=== PATIENT | male | born 1990 | race Caucasian/White ===

== ENCOUNTER 2016-11-10 21:24 | Emergency (ER) | payer SELFPAY ==
[2016-11-10 21:46] VITALS: BP 134/86; PULSE 75; TEMP 98.3; BMI 27.3
[2016-11-11] MEDS ORDERED: AMOXICILLIN 500 MG CAPSULE (FP) PO ONE (00:08)
[2016-11-11] MEDS ORDERED: KETOROLAC TROMETHAMINE 60 MG/2 ML VIAL IM ONE (00:08)
--- NOTE | 2016-11-11 00:15 | PDOC ---
History of Present Illness - General Chief Complaint: Toothache Stated Complaint: TOOTHACHE Time Seen by Provider: 11/10/16 23:37 History Source: Patient Exam Limitations: No Limitations - History of Present Illness Initial Comments: 11/11/16 00:13 25yo Male patient w/ PmHx: Anxiety presents to ED c/o dental pain which began yesterday, but worsened today. Patient reports subjective fever. Denies any other complaints at this time. Past History - Travel Traveled outside of the country in the last 30 days: No Close contact w/someone who was outside of country & ill: No - Past Medical History Allergies/Adverse Reactions: Allergies Allergy/AdvReac Type Severity Reaction Status Date / Time No Known Allergies Allergy Verified 11/10/16 21:42 Home Medications: Ambulatory Orders No Home Medications 0 dose .ROUTE UTDICT 12/09/12 Sertraline HCl 50 mg PO DAILY 11/10/16 Amoxicillin - [Amoxicillin 500mg Capsule -] 500 mg PO Q6H #28 capsule 11/11/16 Oxycodone HCl/Acetaminophen [Oxycodone-Acetaminophen 5-325] 1 each PO Q6H PRN # 12 tablet MDD 4 tabs 11/11/16 Psychiatric Problems: Yes (Anxiety) - Immunization History Immunization Up to Date: Yes - Psycho/Social/Smoking Cessation Hx Suicidal Ideation: No Smoking Status: No Smoking History: Never smoked Have you smoked in the past 12 months: No Number of Cigarettes Smoked Daily: 0 Information on smoking cessation initiated: No Hx Alcohol Use: No Drug/Substance Use Hx: No Substance Use Type: None Review of Systems - Review of Systems Able to Perform ROS?: Yes Is the patient limited Bulgarian proficient: No Constitutional: Yes: Fever (Subjective). No: Chills HEENTM: Yes: Dental Problems All Other Systems: Reviewed and Negative *Physical Exam - Vital Signs Last Vital Signs Temp Pulse Resp BP Pulse Ox 98.3 F 75 17 134/86 99 11/10/16 21:43 11/10/16 21:43 11/10/16 21:43 11/10/16 21:43 11/10/16 21:43 - Physical Exam General Appearance: Yes: Nourished, Appropriately Dressed. No: Apparent Distress, Mild Distress, Moderate Distress, Severe Distress HEENT: positive: EOMI, SESAR, Normal ENT Inspection, Normal Voice, Symmetrical, TMs Normal, Pharynx Normal, Other (Dental caries to tooth# 14 and 15 with mild gum line swelling. Mild erythema). negative: Pharyngeal Erythema, Tonsillar Exudate, Tonsillar Erythema, Nasal Congestion, Rhinorrhea, TM Bulging, TM Dull, TM Erythema Neck: positive: Trachea midline, Normal Thyroid, Supple. negative: Rigid, Decreased range of motion, Stridor, Lymphadenopathy (R), Lymphadenopathy (L) Respiratory/Chest: positive: Lungs Clear, Normal Breath Sounds. negative: Chest Tender, Respiratory Distress, Accessory Muscle Use, Labored Respiration, Rapid RR Cardiovascular: positive: Regular Rhythm, Regular Rate Musculoskeletal: positive: Normal Inspection. negative: CVA Tenderness, Vertebral Tenderness Extremity: positive: Normal Capillary Refill, Normal Inspection, Normal Range of Motion. negative: Pedal Edema, Swelling, Calf Tenderness, Erythema, Inflammation Integumentary: positive: Normal Color, Dry, Warm. 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, Fully Oriented, Alert, Normal Mood/ Affect, Normal Response, Motor Strength 5/5 *DC/Admit/Observation/Transfer Diagnosis at time of Disposition: Dental caries, Gingivitis, acute - Discharge Dispostion Disposition: HOME Condition at time of disposition: Stable Admit: No - Prescriptions Prescriptions: Amoxicillin - [Amoxicillin 500mg Capsule -] 500 mg PO Q6H #28 capsule Oxycodone HCl/Acetaminophen [Oxycodone-Acetaminophen 5-325] 1 each PO Q6H PRN # 12 tablet MDD 4 tabs PRN Reason: Severe Pain - Patient Instructions Printed Discharge Instructions: DI for Tooth Decay, DI for Dental Pain Additional Instructions: FOLLOW UP WITH YOUR DENTIST DISCUSSED. IF YOU FAIL TO DO SO, YOUR SYMPTOMS MAY RETURN. TAKE MEDICATIONS PRESCRIBED. DO NOT DRIVE, DRINK ALCOHOL OR OPERATE HEAVY MACHINERY WHILE TAKING OXYCODONE. Print Language: ROMANIAN
[2016-11-11] MEDS ORDERED: KETOROLAC TROMETHAMINE 60 MG/2 ML VIAL ONE (00:36)
[2016-11-11] MEDS ORDERED: AMOXICILLIN 500 MG CAPSULE (FP) ONE (00:36)
--- NOTE | 2016-11-11 00:43 | PDOC ---
*Physical Exam - Vital Signs Last Vital Signs Temp Pulse Resp BP Pulse Ox 98.3 F 75 17 134/86 99 11/10/16 21:43 11/10/16 21:43 11/10/16 21:43 11/10/16 21:43 11/10/16 21:43 Medical Decision Making - Medical Decision Making 11/11/16 00:43 agree with care from [facility] [employer] Yefri *DC/Admit/Observation/Transfer Diagnosis at time of Disposition: Dental caries, Gingivitis, acute - Prescriptions Prescriptions: Amoxicillin - [Amoxicillin 500mg Capsule -] 500 mg PO Q6H #28 capsule Oxycodone HCl/Acetaminophen [Oxycodone-Acetaminophen 5-325] 1 each PO Q6H PRN # 12 tablet MDD 4 tabs PRN Reason: Severe Pain - Referrals Referrals: Xavier Cramer MD [Primary Care Provider] - - Patient Instructions Printed Discharge Instructions: DI for Tooth Decay, DI for Dental Pain Additional Instructions: FOLLOW UP WITH YOUR DENTIST DISCUSSED. IF YOU FAIL TO DO SO, YOUR SYMPTOMS MAY RETURN. TAKE MEDICATIONS PRESCRIBED. DO NOT DRIVE, DRINK ALCOHOL OR OPERATE HEAVY MACHINERY WHILE TAKING OXYCODONE. Print Language: JAMAICAN - Post Discharge Activity
== END 2016-11-11 00:49 | disposition home or self-care (01) ==
LOC: JERFT 21:24 → JER 21:24
PROC: 3E0233Z Introduction of Anti-inflammatory into Muscle, Percutaneous Approach (ICD-10-PCS; principal; 2016-11-10)
DX: K02.9 Dental caries, unspecified (principal); K05.10 Chronic gingivitis, plaque induced
CPT/HCPCS: 99281-25

== ENCOUNTER 2018-03-05 15:50 | Emergency (ER) | payer SELFPAY ==
[2018-03-05 15:55] VITALS: BP 122/76; PULSE 56; TEMP 98.6; BMI 28.0
--- NOTE | 2018-03-05 16:56 | PDOC ---
History of Present Illness - General Chief Complaint: Weakness Stated Complaint: FATIGUE Time Seen by Provider: 03/05/18 16:25 History Source: Patient Exam Limitations: No Limitations - History of Present Illness Initial Comments: 03/05/18 16:56 The patient is a 27M with a PMH of anxiety who presents to the ER with complaints of fatigue and eye twitching. The patient states that for the past 2- 3 days he's been more fatigued and feeling anxious. He states that he sleeps 3- 4 hours a night and has recently picked up a second job. He admits to formerly taking sertraline for his anxiety then stopping cold turkey 3 months ago. He started it again 2 days ago because he could not tolerate the anxiety. He denies any fevers, chills, nausea, vomiting, decreased PO intake, and stimulant use. He denies any illicit drug use. Past History - Past Medical History Allergies/Adverse Reactions: Allergies Allergy/AdvReac Type Severity Reaction Status Date / Time No Known Allergies Allergy Verified 03/05/18 15:55 Home Medications: Ambulatory Orders No Home Medications 0 dose .ROUTE UTDICT 12/09/12 Sertraline HCl 50 mg PO DAILY 11/10/16 Amoxicillin - [Amoxicillin 500mg Capsule -] 500 mg PO Q6H #28 capsule 11/11/16 Oxycodone HCl/Acetaminophen [Oxycodone-Acetaminophen 5-325] 1 each PO Q6H PRN # 12 tablet MDD 4 tabs 11/11/16 COPD: No Psychiatric Problems: Yes (Anxiety) - Immunization History Immunization Up to Date: Yes - Suicide/Smoking/Psychosocial Hx Smoking Status: No Smoking History: Never smoked Have you smoked in the past 12 months: No Number of Cigarettes Smoked Daily: 0 Hx Alcohol Use: No Drug/Substance Use Hx: No Substance Use Type: None Review of Systems - Review of Systems Able to Perform ROS?: Yes Comments:: 03/05/18 17:10 GENERAL/CONSTITUTIONAL: Positive for fatigue. No fever or chills. No weakness. HEAD, EYES, EARS, NOSE AND THROAT: Positive for eye twitching. No change in vision. No ear pain or discharge. No sore throat. CARDIOVASCULAR: No chest pain, palpitations, or lightheadedness. RESPIRATORY: No cough, wheezing, shortness of breath, or hemoptysis. GASTROINTESTINAL: No nausea, vomiting, diarrhea, constipation, or abdominal pain. GENITOURINARY: No dysuria, frequency, hematuria, or change in urination. MUSCULOSKELETAL: No joint or muscle swelling or pain. No neck or back pain. SKIN: No rash or lesions. NEUROLOGIC: No headache, numbness, tingling, focal weakness, loss of consciousness, or change in strength/sensation. ENDOCRINE: No increased thirst. No abnormal weight change. HEMATOLOGIC/LYMPHATIC: No anemia, easy bleeding, or history of blood clots. ALLERGIC/IMMUNOLOGIC: No hives or skin allergy. Is the patient limited Estonian proficient: No *Physical Exam - Vital Signs Last Vital Signs Temp Pulse Resp BP Pulse Ox 98.6 F 56 L 18 122/76 99 03/05/18 15:52 03/05/18 15:52 03/05/18 15:52 03/05/18 15:52 03/05/18 15:52 - Physical Exam Comments: 03/05/18 17:11 GENERAL: Well developed, well nourished. Awake and alert. No acute distress. HEENT: Normocephalic, atraumatic. Hearing grossly normal. Moist mucous membranes. PERRLA, EOMI. No conjunctival pallor. Sclera are non-icteric. NECK: Supple. Full ROM. No JVD. CARDIOVASCULAR: Regular rate and rhythm. No murmurs, rubs, or gallops. PULMONARY: No evidence of respiratory distress. Lungs clear to auscultation bilaterally. No wheezing, rales or rhonchi. ABDOMINAL: Soft. Non-tender. Non-distended. No rebound or guarding. GENITOURINARY: No CVA tenderness bilaterally. MUSCULOSKELETAL: Normal range of motion at all joints. No bony deformities or tenderness. EXTREMITIES: No cyanosis. No clubbing. No edema. No calf tenderness or swelling. SKIN: Warm and dry. Normal capillary refill. No rashes. No jaundice. NEUROLOGICAL: Alert, awake, appropriate. Cranial nerves 2-12 intact. Normal speech. Gait is normal without ataxia. PSYCHIATRIC: Cooperative. Good eye contact. Appropriate mood and affect. Medical Decision Making - Medical Decision Making 03/05/18 17:11 The patient is a 27M with a PMH of anxiety who presents with fatigue and eye twitching, likely both related to anxiety as they are nonspecific. The patient states that he has not been sleeping well. When offered days off work, he requests an extra day. He does admit to increased anxiety. Will give him PCP f/ u and strict return precautions. *DC/Admit/Observation/Transfer Diagnosis at time of Disposition: Fatigue Qualifiers: Fatigue type: unspecified Qualified Code(s): R53.83 - Other fatigue - Discharge Dispostion Disposition: HOME Condition at time of disposition: Stable Decision to Admit order: No - Referrals Referrals: Daniel Soto MD [Staff Physician] - - Patient Instructions Printed Discharge Instructions: DI for Anxiety -- Adult Additional Instructions: Please follow up with the primary care physician at the [facility] in 1-3 days. Please return to the ER if you have any signs or symptoms of chest pain, shortness of breath, uncontrollable fever, chills, nausea, vomiting, numbness, tingling, or weakness in any part of your body, changes in vision, or slurred speech. Please take your medications as prescribed. Please return to the ER if symptoms persist, worsen, or new symptoms arise. - Post Discharge Activity
--- NOTE | 2018-03-05 17:03 | PDOC ---
Attending Attestation - Resident Resident Name: Ethan Humphries - ED Attending Attestation I have performed the following: I have examined & evaluated the patient, The case was reviewed & discussed with the resident, I agree w/resident's findings & plan, Exceptions are as noted - HPI HPI: 03/05/18 16:54 27 M with h/o anxiety presents to ED with 1 week of fatigue and bilateral eye burning and twitching. Pt states that he started working 2 jobs last week and gets very inconsistent sleep. 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 He then wakes up at 3am to go back to work. Pt states that he feels very fatigued, and his eyes both feel irritated. He denies any increased redness or drainage from his eyes. Denies blurred vision or double vision. Pt does report twitching of his L eyelid. - Physicial Exam PE: 03/05/18 17:03 "GENERAL: Awake, alert, and fully oriented, in no acute distress. HEAD: No signs of trauma EYES: PERRLA, EOMI, sclera anicteric, conjunctiva clear ENT: Auricles normal inspection, hearing grossly normal, nares patent, oropharynx clear without exudates. Moist mucosa NECK: Nontender, no stepoffs, Normal ROM, supple, no lymphadenopathy, JVD, or masses LUNGS: Breath sounds equal, clear to auscultation bilaterally. No wheezes, and no crackles HEART: Regular rate and rhythm, normal S1 and S2, no murmurs, rubs or gallops ABDOMEN: Soft, nontender, normoactive bowel sounds. No guarding, no rebound. No masses EXTREMITIES: Normal range of motion, no edema. No clubbing or cyanosis. No cords, erythema, or tenderness NEUROLOGICAL: Cranial nerves II through XII intact. 5/5 strength and sensation in all extremities, Normal speech, normal gait, normal cerebellar function SKIN: Warm, Dry, normal turgor, no rashes or lesions noted." - Medical Decision Making 03/05/18 17:03 27 M with fatigue, eye burning, and L eyelid twitching. Likely 2/2 sleep deprivation. Pt with normal exam, no sign of conjuncivitis. Pt well appearing, stable vitals. - Artificial tears - F/u PMD - Work note Pt is well appearing, with normal vitals. Clinically stable for DC at this time. I discussed the physical exam findings, ancillary test results and final diagnoses with the patient. I answered all of the patient's questions. The patient was satisfied with the care received and felt comfortable with the discharge plan and treatment plan. The patient agrees to follow up with the primary care physician within 24-72 hours.
== END 2018-03-05 17:31 | disposition home or self-care (01) ==
LOC: JER 15:50
DX: R53.83 Other fatigue (principal); F41.9 Anxiety disorder, unspecified
CPT/HCPCS: 99282-25

== ENCOUNTER 2018-05-08 18:32 | Emergency (ER) | payer SELFPAY ==
--- NOTE | 2018-05-08 19:08 | PDOC ---
Rapid Medical Evaluation Time Seen by Provider: 05/08/18 19:06 Medical Evaluation: Allergies Allergy/AdvReac Type Severity Reaction Status Date / Time No Known Allergies Allergy Verified 03/05/18 15:55 05/08/18 19:07 Pt c/o: headache and weakness x 1 week, no hx of vertigo, no fever, hx anxiety, + insomnia, eating well Pt on brief exam: vss, pt ordered for: cbc, comp, ua pt to proceed to the ED Discharge Disposition - Diagnosis Headache - Referrals Referrals: Xavier Cramer MD [Primary Care Provider] - - Patient Instructions - Post Discharge Activity
[2018-05-08 19:10] VITALS: BMI 28.3
[2018-05-08 20:03] LABS: BASO % 0.8 % (0-2.0); EOS % 1.8 % (0-4.5); HEMATOCRIT 44.5 % (35.4-49); HEMOGLOBIN 15.6 GM/dL (11.7-16.9); LYMPH % 26.1 % (8-40); MCH 31.2 pg (25.7-33.7); MCHC 35.1 g/dl (32.0-35.9); MEAN PLT VOLUME 9.6 fl (7.5-11.1); MONO % 9.5 % (3.8-10.2); NEUT % 61.8 % (42.8-82.8); PLATELET COUNT 171 K/MM3 (134-434); RDW 13.1 % (11.9-15.9); WHITE BLOOD COUNT 10.4 K/mm3 (4.0-10.0)
--- NOTE | 2018-05-08 20:34 | PDOC ---
History of Present Illness - General Chief Complaint: Lightheaded Stated Complaint: Weakness Time Seen by Provider: 05/08/18 19:06 History Source: Patient - History of Present Illness Initial Comments: 05/08/18 20:50 27-year-old male complaining of overall weakness and fatigues for the last several days. Patient reports that he's been taking sertraline for anxiety. Reports being anxious for the last 2 weeks when patient lost his job. Currently patient restarted working and has some anxiety about the new job. Patient reports that he has been sleeping 3-4 hours daily for the last 2 weeks. Denies suicidal ideation or homicidal ideations. Denies fevers/chills, nausea, vomiting , diarrhea, abdominal pain, chest pain, headache, diaphoresis, weight loss, urinary symptoms, testicular pain. No past medical history. Denies drug and alcohol use. 05/08/18 20:54 Past History - Past Medical History Allergies/Adverse Reactions: Allergies Allergy/AdvReac Type Severity Reaction Status Date / Time No Known Allergies Allergy Verified 05/08/18 19:09 Home Medications: Ambulatory Orders Sertraline HCl 50 mg PO DAILY 11/10/16 COPD: No Psychiatric Problems: Yes (Anxiety) - Immunization History Immunization Up to Date: Yes - Suicide/Smoking/Psychosocial Hx Smoking Status: No Smoking History: Never smoked Have you smoked in the past 12 months: No Number of Cigarettes Smoked Daily: 0 Hx Alcohol Use: No Drug/Substance Use Hx: No Substance Use Type: None Review of Systems - Review of Systems Able to Perform ROS?: Yes Is the patient limited Iranian proficient: No Constitutional: Yes: Weakness. No: Symptoms Reported, See HPI, Chills, Diaphoresis, Fever, Loss of Appetite, Malaise, Night Sweats, Weight Stable, Unintentional Wgt. Loss, Unexplained wgt Loss, Other Neurological: No: Symptoms reported, See HPI, Headache, Numbness, Paresthesia, Pre-Existing Deficit, Seizure, Tingling, Tremors, Weakness, Unsteady Gait, Ataxia, Dizziness, Other Psychiatric: Yes: Anxiety, Stressors, Sleep Pattern Change, Mood Swings. No: Depression, Frequent Crying, Emotional Problems, Change in Appetite, Other *Physical Exam - Vital Signs Last Vital Signs Temp Pulse Resp BP Pulse Ox 98.3 F 18 L 64 H 113/73 100 05/08/18 19:08 05/08/18 19:08 05/08/18 19:08 05/08/18 19:08 05/08/18 19:08 - Physical Exam General Appearance: Yes: Appropriately Dressed, Other (+ eye contact) HEENT: positive: Normal ENT Inspection Respiratory/Chest: positive: Lungs Clear, Normal Breath Sounds, Other (normal respirations now) Cardiovascular: positive: Regular Rhythm, Regular Rate Gastrointestinal/Abdominal: positive: Normal Bowel Sounds, Soft Musculoskeletal: positive: Normal Inspection Extremity: positive: Normal Capillary Refill, Normal Inspection, Normal Range of Motion Integumentary: positive: Normal Color, Dry, Warm ED Treatment Course - LABORATORY CBC & Chemistry Diagram: 05/08/18 19:55 05/08/18 19:55 - ADDITIONAL ORDERS Additional order review: 05/08/18 19:55 RBC 5.00 MCV 89.0 MCHC 35.1 RDW 13.1 MPV 9.6 Neutrophils % 61.8 Lymphocytes % 26.1 Monocytes % 9.5 Eosinophils % 1.8 Basophils % 0.8 Medical Decision Making - Medical Decision Making 05/08/18 21:06 A: elevated TSH; weakness P: labs UA Urine tox *DC/Admit/Observation/Transfer Diagnosis at time of Disposition: Sleep disturbance, unspecified, Elevated TSH - Discharge Dispostion Disposition: HOME Condition at time of disposition: Good - Referrals Referrals: Xavier Cramer MD [Primary Care Provider] - Call tomorrow - Patient Instructions Printed Discharge Instructions: Thyroid Stimulating Hormone Additional Instructions: Additional Instructions: * Please call your personal physician to report your Emergency Department visit and to report your progress, if any. * If there is no improvement in symptoms in 2 days call your physician. * Return to the Emergency Department for any worsening symptoms. please follow up with your doctor as soon as possible. you need to follow up with your elevated TSH level. - Post Discharge Activity
[2018-05-08 20:40] LABS: ALBUMIN 4.2 g/dl (3.4-5.0); ALK PHOS 90 U/L (45-117); ANION GAP 7 MMOL/L (8-16); BILIRUBIN,TOTAL 0.4 mg/dL (0.2-1); BLOOD UREA NITROGEN 17 mg/dL (7-18); CALCIUM 8.9 mg/dL (8.5-10.1); CHLORIDE 109 mmol/L (98-107); CO2 27 mmol/L (21-32); CREATININE 0.9 mg/dL (0.55-1.3); GLUCOSE,RANDOM 90 mg/dL (74-106); POTASSIUM 3.7 mmol/L (3.5-5.1); SGOT/AST 15 U/L (15-37); SGPT/ALT 24 U/L (13-61); SODIUM 142 mmol/L (136-145); TOT PROT 7.5 g/dl (6.4-8.2)
[2018-05-08 21:16] LABS: URINE APPEARANCE CLEAR; URINE BILIRUBIN NEGATIVE (<2.0 mg/dL); URINE COLOR YELLOW; URINE GLUCOSE (UA) NEGATIVE (NEGATIVE); URINE KETONE NEGATIVE (NEGATIVE); URINE LEUK ESTERASE NEGATIVE (NEGATIVE); URINE NITRITE NEGATIVE (NEGATIVE); URINE PROTEIN NEGATIVE (NEGATIVE)
[2018-05-08 21:46] LABS: COCAINE, UR NEGATIVE ng/ml (CUTOFF=300); METHADONE, UR NEGATIVE ng/ml (CUTOFF=300); OPIATES, URI NEGATIVE ng/ml (CUTOFF=300); PHENCYCLIDINE,URINE NEGATIVE ng/ml (CUTOFF=25); URINE AMPHETAMINES NEGATIVE ng/ml (CUTOFF=500); URINE BARBITURATES NEGATIVE ng/ml (CUTOFF=200); URINE BENZODIAZEPINES NEGATIVE ng/ml (CUTOFF=200)
[2018-05-08 22:25] VITALS: BP 116/84; PULSE 66; TEMP 98.8
== END 2018-05-08 22:31 | disposition home or self-care (01) ==
LOC: JER 18:32
DX: G47.8 Other sleep disorders (principal); E07.89 Other specified disorders of thyroid; F41.9 Anxiety disorder, unspecified
CPT/HCPCS: 36415; 80053; 80307; 81003; 84443; 85025; 99283-25

== ENCOUNTER 2018-05-26 20:59 | Emergency (ER) | payer SELFPAY ==
--- NOTE | 2018-05-26 21:15 | PDOC ---
Rapid Medical Evaluation Time Seen by Provider: 05/26/18 21:12 Medical Evaluation: Allergies Allergy/AdvReac Type Severity Reaction Status Date / Time No Known Allergies Allergy Verified 05/26/18 21:13 I have performed a brief in-person evaluation of this patient. The patient presents with a chief complaint of: diarrhea x 3 days. took imodium. abdominal pain and red spots in his stool today Pertinent physical exam findings: none I have ordered the following: labs The patient will proceed to the ED for further evaluation. Discharge Disposition - Diagnosis Diarrhea - Referrals Referrals: Xavier Cramer MD [Primary Care Provider] - - Patient Instructions - Post Discharge Activity
[2018-05-26 21:16] VITALS: BP 114/74; PULSE 95; TEMP 99.3; BMI 27.3
[2018-05-26 21:36] LABS: BASO % 0.7 % (0-2.0); EOS % 2.3 % (0-4.5); HEMOGLOBIN 16.7 GM/dL (11.7-16.9); LYMPH % 17.5 % (8-40); MCH 31.2 pg (25.7-33.7); MCHC 35.6 g/dl (32.0-35.9); MEAN CELL VOLUME 87.5 fl (80-96); MEAN PLT VOLUME 9.5 fl (7.5-11.1); MONO % 11.3 % (3.8-10.2); NEUT % 68.2 % (42.8-82.8); PLATELET COUNT 181 K/MM3 (134-434); RBC 5.37 M/mm3 (4.00-5.60); RDW 12.8 % (11.9-15.9)
[2018-05-26] MEDS ORDERED: SODIUM CHLORIDE 0.9% 500 ML INFUS.BAG IV ONE (21:54)
[2018-05-26 22:12] LABS: ALK PHOS 94 U/L (45-117); ANION GAP 8 MMOL/L (8-16); BILIRUBIN,TOTAL 0.7 mg/dL (0.2-1); BLOOD UREA NITROGEN 16 mg/dL (7-18); CALCIUM 8.6 mg/dL (8.5-10.1); CHLORIDE 105 mmol/L (98-107); CO2 25 mmol/L (21-32); GLUCOSE,RANDOM 100 mg/dL (74-106); POTASSIUM 3.7 mmol/L (3.5-5.1); SGOT/AST 37 U/L (15-37); SGPT/ALT 41 U/L (13-61); SODIUM 138 mmol/L (136-145); TOT PROT 7.6 g/dl (6.4-8.2)
--- NOTE | 2018-05-26 22:13 | PDOC ---
History of Present Illness - General Chief Complaint: Pain Stated Complaint: Diarrhea Time Seen by Provider: 05/26/18 21:12 History Source: Patient Exam Limitations: No Limitations - History of Present Illness Initial Comments: 27M with a PMH of anxiety who presents to the ER with diarrhea for 5 days. He reports that he had a fever on Tuesday for which he took advil and then it went away. A day later he states that his diarrhea began and has persisted for the past 5 days. He states he has not had any fevers during this time and has not taken antibiotics. He came into the ER today because he saw some red spots in his diarrhea which got him worried. He also started to have mild abdominal pain today. Here in the ER he is not experiencing any abdominal pain. He denies any hx of crohn's or UC. He denies any lightheadedness, dizziness, or syncope. Denies chest pain, SOB, difficulty breathing. Denies back pain, dysuria , freuqency, urgency. PCP: Dr. Xavier Cramer Allergies: NKA, NKDA Social Hx: Denies smoking, drinking, or illicit drug usage Past History - Past Medical History Allergies/Adverse Reactions: Allergies Allergy/AdvReac Type Severity Reaction Status Date / Time No Known Allergies Allergy Verified 05/26/18 21:13 Home Medications: Ambulatory Orders Sertraline HCl 50 mg PO DAILY 11/10/16 COPD: No Psychiatric Problems: Yes (Anxiety) - Immunization History Immunization Up to Date: Yes - Suicide/Smoking/Psychosocial Hx Smoking Status: No Smoking History: Never smoked Have you smoked in the past 12 months: No Number of Cigarettes Smoked Daily: 0 Hx Alcohol Use: No Drug/Substance Use Hx: No Substance Use Type: None Review of Systems - Review of Systems Able to Perform ROS?: Yes Comments:: CONSTITUTIONAL: Present: Fever Absent: no chills, no fatigue EYES: Absent: visual changes ENT: Absent: ear pain, no sore throat CARDIOVASCULAR: Absent: chest pain, no palpitations RESPIRATORY: Absent: cough, no SOB GI: Present: Abdominal pain, diarrhea Absent: no nausea, no vomiting, no constipation GENITOURINARY: Absent: dysuria, no frequency, no hematuria MUSKULOSKELETAL: Absent: back pain, no arthralgia, no myalgia SKIN: Absent: rash NEURO: Absent: headache *Physical Exam - Vital Signs Last Vital Signs Temp Pulse Resp BP Pulse Ox 99.3 F 95 H 18 114/74 98 05/26/18 21:13 05/26/18 21:13 05/26/18 21:13 05/26/18 21:13 05/26/18 21:13 - Physical Exam Comments: GENERAL: Well-appearing, well-nourished. No apparent distress. HEENT: Normocephalic, atraumatic. PERRL, EOM intact. CARDIOVASCULAR: Normal S1, S2. Regular rate and rhythm. PULMONARY: Clear to auscultation bilaterally. ABDOMEN: Soft, non-distended, non-tender. Normal BS. No rebound, guarding. EXTREMITIES: Normal ROM in all four extremities. No gross deformities. SKIN: Warm, dry. No rash NEUROLOGICAL: No focal neurological deficits. Rectal Exam: positive: heme negative stool, normal exam, NL Prostate, normal rectal tone. negative: melena, heme positive stool, hemorrhoids Moderate Sedation - Procedure Monitoring Vital Signs: Procedure Monitoring Vital Signs Temperature 99.3 F 05/26/18 21:13 Pulse Rate 95 H 05/26/18 21:13 Respiratory Rate 18 05/26/18 21:13 Blood Pressure 114/74 05/26/18 21:13 O2 Sat by Pulse Oximetry (%) 98 05/26/18 21:13 ED Treatment Course - LABORATORY CBC & Chemistry Diagram: 05/26/18 21:26 05/26/18 21:26 - ADDITIONAL ORDERS Additional order review: Laboratory Results 05/26/18 21:52 Stool Occult Blood Negative 05/26/18 21:26 RBC 5.37 MCV 87.5 MCHC 35.6 RDW 12.8 MPV 9.5 Neutrophils % 68.2 Lymphocytes % 17.5 D Monocytes % 11.3 H Eosinophils % 2.3 Basophils % 0.7 - Medications Given in the ED: ED Medications Discontinued Medications Generic Name Dose Route Start Last Admin Trade Name Freq PRN Reason Stop Dose Admin Sodium Chloride 1,000 ml 05/26/18 21:54 05/26/18 21:57 Normal Saline - IV 05/26/18 21:55 1,000 ml ONCE ONE Administration Medical Decision Making - Medical Decision Making 27M with a PMH of anxiety who presents to the ER with diarrhea for 5 days. Reports red spots today and mild abdominal pain. DDx IBNLT: Gastroenteritis, food poisoning, UC/Crohn, C-diff. Plan: Cbc, Cmp, hemeoccult, rectal temp, IV hydration, re-assess. Labs wnl. Hemeoccult negative. Patient currently feels well and has no complaints. Will advise to follow up with PCP This is likely a gastroenteirits illness. Explained to patient it should pass in the next 3 to 5 days. *DC/Admit/Observation/Transfer Diagnosis at time of Disposition: Diarrhea - Discharge Dispostion Disposition: HOME Condition at time of disposition: Stable Decision to Admit order: No - Referrals Referrals: Xavier Cramer MD [Staff Physician] - - Patient Instructions Printed Discharge Instructions: Diarrhea (Alternative Therapy), Diarrhea Additional Instructions: You came into the ER with diarrhea. We took a sample of your diarrhea and it had no blood in it. Make sure to follow up with your primary care doctor in the next 7-10 days if the diarrhea does not go away. Please come back to the ER if your abdominal pain worsens, you develop a fever, or have any other new or worsening concerns. Thank you for coming to the [facility] ER. We hope you feel better soon! Print Language: MAURITIAN - Post Discharge Activity
--- NOTE | 2018-05-26 23:45 | PDOC ---
Attending Attestation - HPI HPI: This patient is a 27 year old male, with no significant PMHx, who presents with 4 days of persistent diarrhea. Patient states that he has had diarrhea for 4 days and today he notes some red flecks in toilet today. He also had some abdominal pain earlier. Patient states he is not on antibiotics. Patient also notes a fever on Tuesday and took advil but denies fevers since. He denies any hx of crohn's or UC. He denies any lightheadedness, dizziness, or syncope. Denies chest pain, SOB, difficulty breathing. Denies back pain, dysuria , frequency, urgency. PCP: Dr. Xavier Cramer 05/26/18 23:45 - Physicial Exam PE: GENERAL: Awake, alert, and fully oriented, in no acute distress HEAD: No signs of trauma EYES: PERRLA, EOMI, sclera anicteric, conjunctiva clear ENT: Auricles normal inspection, hearing grossly normal, nares patent, oropharynx clear without exudates. Moist mucosa NECK: Normal ROM, supple, no lymphadenopathy, JVD, or masses LUNGS: Breath sounds equal, clear to auscultation bilaterally. No wheezes, and no crackles HEART: Regular rate and rhythm, normal S1 and S2, no murmurs, rubs or gallops ABDOMEN: Soft, nontender, normoactive bowel sounds. No guarding, no rebound. No masses EXTREMITIES: Normal range of motion, no edema. No clubbing or cyanosis. No cords, erythema, or tenderness NEUROLOGICAL: Cranial nerves II through XII grossly intact. Normal speech, normal gait SKIN: Warm, Dry, normal turgor, no rashes or lesions noted. 05/26/18 23:46 <Hansa Cunningham - Last Filed: 05/26/18 23:45> - Resident Resident Name: Paulo Gill - ED Attending Attestation I have performed the following: I have examined & evaluated the patient, The case was reviewed & discussed with the resident, I agree w/resident's findings & plan, Exceptions are as noted - Medical Decision Making 05/28/18 02:42 Pt will be discharged as a viral gastroenteritis/food poisoning. Pt is stable to go home. <Kayli Garcia - Last Filed: 05/28/18 02:43>
== END 2018-05-26 23:55 | disposition home or self-care (01) ==
LOC: JER 20:59
PROC: 3E0337Z Introduction of Electrolytic and Water Balance Substance into Peripheral Vein, Percutaneous Approach (ICD-10-PCS; principal; 2018-05-26)
DX: R19.7 Diarrhea, unspecified (principal)
CPT/HCPCS: 36415; 80053; 82272; 85025; 99283-25

== ENCOUNTER 2018-07-16 15:31 | Emergency (ER) | payer SELFPAY | END 2018-07-16 17:18 | disposition home or self-care (01) | LOC: JER 15:31 → JERFT 17:18 ==

== ENCOUNTER 2020-01-15 16:27 | Emergency (ER) | payer OTHER ==
[2020-01-15 16:32] VITALS: BP 123/75; PULSE 86; TEMP 98.1; BMI 28.0
--- NOTE | 2020-01-15 16:33 | PDOC ---
Rapid Medical Evaluation Time Seen by Provider: 01/15/20 16:30 Medical Evaluation: Allergies Allergy/AdvReac Type Severity Reaction Status Date / Time No Known Allergies Allergy Verified 01/15/20 16:29 01/15/20 16:30 I have performed a brief in-person evaluation of this patient. The patient presents with a chief complaint of: "Loss of focus" to eyes on and off x 1 week. Nearsighted at baseline and wears glasses for far sight. Has not seen his eye doctor in years. H/o anxiety Pertinent physical exam findings:stable, NAD I have ordered the following:nothing The patient will proceed to the ED for further evaluation. Discharge Disposition - Diagnosis Visual changes - Referrals - Patient Instructions - Post Discharge Activity
--- NOTE | 2020-01-15 17:04 | PDOC ---
History of Present Illness - General Chief Complaint: Eye Problem Stated Complaint: EYE PAIN Time Seen by Provider: 01/15/20 16:30 - History of Present Illness Initial Comments: 01/15/20 17:01 29-year-old male with a past medical history of anxiety presents for evaluation of eye discomfort x1 week last time he was at the eye doctor was 10 years ago he does wear prescription glasses Past History - Medical History Allergies/Adverse Reactions: Allergies Allergy/AdvReac Type Severity Reaction Status Date / Time No Known Allergies Allergy Verified 01/15/20 16:29 Home Medications: Ambulatory Orders Amox-Tr/K Cl [Augmentin - 875Mg Tablet] 1 tab PO BID #14 tablet 07/16/18 Ibuprofen 800 mg PO Q8H #20 tablet 11/02/19 Penicillin V Potassium [Pen Vee K -] 500 mg PO QID #28 tablet 11/02/19 COPD: No Psychiatric Problems: Yes (Anxiety) - Immunization History Immunization Up to Date: Yes - Psycho-Social/Smoking History Smoking Status: No Smoking History: Never smoked Have you smoked in the past 12 months: No Number of Cigarettes Smoked Daily: 0 - Substance Abuse Hx (Audit-C & DAST Scrn) How often the patient has a drink containing alcohol: Never Score: In Men: 4 or > Positive; In Women: 3 or > Positive: 0 Screen Result (Pos requires Nsg. Audit-10AR): Negative In the last yr the pt used illegal drug/Rx for NonMed reason: No Score: Yes response is considered Positive: 0 Screen Result (Positive result requires Nsg. DAST-10): Negative Review of Systems - Review of Systems Constitutional: No: Fever HEENTM: Yes: Recent change in vision. No: Eye Pain, Blurred Vision, Double Vision *Physical Exam - Vital Signs Last Vital Signs Temp Pulse Resp BP Pulse Ox 98.1 F 86 20 123/75 97 01/15/20 16:29 01/15/20 16:29 01/15/20 16:29 01/15/20 16:29 01/15/20 16:29 - Physical Exam 01/15/20 17:02 20/15 B 20/20 R 20/15 L B corrected Medical Decision Making - Medical Decision Making 01/15/20 17:03 Follow-up with ophthalmology I have reviewed the pathophysiology with the patient. They are in agreement with the treatment plan all questions were answered to their satisfaction. Understanding for follow-up without fail was also conveyed to the patient. Again they are in agreement. Discharge - Discharge Information Problems reviewed: Yes Clinical Impression/Diagnosis: Visual changes Condition: Stable Disposition: HOME - Admission No - Follow up/Referral Referrals: Frankie Austin MD [Staff Physician] - - Patient Discharge Instructions Additional Instructions: Return to the emergency room for further issues and without fail follow-up with ophthalmology in 1 to 2 days for further evaluation and treatment options. - Post Discharge Activity
== END 2020-01-15 17:22 | disposition home or self-care (01) ==
LOC: JERFT 16:27
DX: H53.9 Unspecified visual disturbance (principal)
CPT/HCPCS: 99282-25

== ENCOUNTER 2020-02-26 12:22 | Emergency (ER) | payer OTHER ==
[2020-02-26 12:27] VITALS: BMI 28.0
--- NOTE | 2020-02-26 12:27 | PDOC ---
Rapid Medical Evaluation Time Seen by Provider: 02/26/20 12:24 Medical Evaluation: Allergies Allergy/AdvReac Type Severity Reaction Status Date / Time No Known Allergies Allergy Verified 02/26/20 12:24 02/26/20 12:26 I have performed a brief in-person evaluation of this patient The patient presents with a chief complaint of:RLQ pain x 1 week Pertinent physical exam findings:stable, NAD I have ordered the following:labs The patient will proceed to the ED for further evaluation Discharge Disposition - Diagnosis Abdominal pain Qualifiers: Abdominal location: right lower quadrant Qualified Code(s): R10.31 - Right lower quadrant pain - Referrals - Patient Instructions - Post Discharge Activity
[2020-02-26 13:17] LABS: BASO % 0.3 % (0-2.0); EOS % 0.9 % (0-4.5); HEMATOCRIT 49.4 % (35.4-49); HEMOGLOBIN 16.9 GM/dL (11.7-16.9); LYMPH % 13.1 % (8-40); MCH 30.5 pg (25.7-33.7); MCHC 34.2 g/dl (32.0-35.9); MEAN CELL VOLUME 89.2 fl (80-96); MEAN PLT VOLUME 9.4 fl (7.5-11.1); MONO % 7.4 % (3.8-10.2); NEUT % 78.3 % (42.8-82.8); PLATELET COUNT 177 K/MM3 (134-434); RBC 5.54 M/mm3 (4.00-5.60); RDW 12.9 % (11.9-15.9); WHITE BLOOD COUNT 9.5 K/mm3 (4.0-10.0)
[2020-02-26] MEDS ORDERED: ACETAMINOPHEN 325 MG TABLET (FP) PO ONE (13:17)
[2020-02-26 13:18] LABS: URINE APPEARANCE CLEAR; URINE BILIRUBIN NEGATIVE (NEGATIVE); URINE COLOR YELLOW; URINE GLUCOSE (UA) NEGATIVE (NEGATIVE); URINE KETONE NEGATIVE (NEGATIVE); URINE LEUK ESTERASE NEGATIVE (NEGATIVE); URINE NITRITE NEGATIVE (NEGATIVE); URINE PROTEIN NEGATIVE (NEGATIVE); URINE UROBILINOGEN 0.2 mg/dL (0.2-1.0)
[2020-02-26 13:25] LABS: INR 1.09 (0.83-1.09); PROTHROMBIN TIME (PATIENT) 12.9 SEC (9.7-13.0)
[2020-02-26 13:42] LABS: ALBUMIN 4.3 g/dl (3.4-5.0); BILIRUBIN,TOTAL 0.7 mg/dL (0.2-1); BLOOD UREA NITROGEN 10.2 mg/dL (7-18); CREATININE 0.9 mg/dL (0.55-1.3); POTASSIUM 3.6 mmol/L (3.5-5.1)
[2020-02-26] MEDS ORDERED: AZITHROMYCIN 500 MG TABLET PO ONE (13:43)
--- NOTE | 2020-02-26 13:44 | PDOC ---
History of Present Illness - General Chief Complaint: Pain, Acute Stated Complaint: LWR ABD PAIN Time Seen by Provider: 02/26/20 12:24 History Source: Patient Exam Limitations: No Limitations Past History - Travel History Traveled outside of the country in the last 30 days: No Close contact w/someone who was outside of country & ill: No - Medical History Allergies/Adverse Reactions: Allergies Allergy/AdvReac Type Severity Reaction Status Date / Time No Known Allergies Allergy Verified 02/26/20 12:24 Home Medications: Ambulatory Orders Fluoxetine HCl [Prozac -] 20 mg PO DAILY 02/26/20 COPD: No Psychiatric Problems: Yes (Anxiety) - Immunization History Immunization Up to Date: Yes - Psycho-Social/Smoking History Smoking Status: No Smoking History: Never smoked Have you smoked in the past 12 months: No Number of Cigarettes Smoked Daily: 0 - Substance Abuse Hx (Audit-C & DAST Scrn) How often the patient has a drink containing alcohol: Never Score: In Men: 4 or > Positive; In Women: 3 or > Positive: 0 Screen Result (Pos requires Nsg. Audit-10AR): Negative In the last yr the pt used illegal drug/Rx for NonMed reason: No Score: Yes response is considered Positive: 0 Screen Result (Positive result requires Nsg. DAST-10): Negative Review of Systems - Review of Systems Able to Perform ROS?: Yes Comments:: 02/26/20 18:13 CONSTITUTIONAL: Absent: fever, chills, diaphoresis, generalized weakness, malaise, loss of appetite HEENT: Absent: rhinorrhea, nasal congestion, throat pain, throat swelling, difficulty swallowing, mouth swelling, ear pain, eye pain, visual Changes CARDIOVASCULAR: Absent: chest pain, loss of consciousness, palpitations, irregular heart rate, peripheral edema RESPIRATORY: Absent: cough, shortness of breath, dyspnea with exertion, orthopnea, wheezing, stridor, hemoptysis GASTROINTESTINAL: Absent: abdominal pain, abdominal distension, nausea, vomiting, diarrhea, constipation, melena, hematochezia GENITOURINARY: Present: Right-sided groin pain. Absent: dysuria, frequency, urgency, hesitancy, hematuria, flank pain, genital pain MUSCULOSKELETAL: Absent: myalgia, arthralgia, joint swelling SKIN: Absent: rash, itching, pallor HEMATOLOGIC/IMMUNOLOGIC: Absent: easy bleeding, easy bruising, lymphadenopathy, frequent infections ENDOCRINE: Absent: unexplained weight gain, unexplained weight loss, heat intolerance, cold intolerance NEUROLOGIC: Absent: headache, focal weakness or paresthesias, dizziness, unsteady gait, seizure, mental status changes, bladder or bowel incontinence PSYCHIATRIC: Absent: anxiety, depression, suicidal or homicidal ideation, hallucinations. Is the patient limited Icelandic proficient: No *Physical Exam - Vital Signs Last Vital Signs Temp Pulse Resp BP Pulse Ox 98.2 F 61 18 130/78 98 02/26/20 12:25 02/26/20 12:25 02/26/20 12:25 02/26/20 12:02/26/20 12:25 - Physical Exam 02/26/20 18:14 GENERAL: Well developed, well nourished. Awake and alert. No acute distress. HEENT: Normocephalic, atraumatic. PERRLA, EOMI. No conjunctival pallor. Sclera are non- icteric. Moist mucous membranes. Oropharynx is clear. NECK: Supple. Full ROM. No JVD. Carotid pulses 2+ and symmetric, without bruits. No thyromegaly. No lymphadenopathy. CARDIOVASCULAR: Regular rate and rhythm. No murmurs, rubs, or gallops. Distal pulses are 2+ and symmetric. PULMONARY: No evidence of respiratory distress. Lungs clear to auscultation bilaterally. No wheezing, rales or rhonchi. ABDOMINAL: Soft. Non-tender. Non-distended. No rebound or guarding. No organomegaly. No rmoactive bowel sounds. Tenderness palpation of the right inguinal region. No hernia palpated.No swelling appreciated. Testicles appear normal size and descended. MUSCULOSKELETAL Normal range of motion at all joints. No bony deformities or tenderness. No CVA tenderness. EXTREMITIES: No cyanosis. No clubbing. No edema. No calf tenderness. SKIN: Warm and dry. Normal capillary refill. No rashes. No jaundice. NEUROLOGICAL: Alert, awake, appropriate. Cranial nerves 2-12 intact. No deficits to light touch and temperature in face, upper extremities and lower extremities. No motor deficits in the in face, upper extremities and lower extremities. Normoreflexic in the upper and lower extremities. Normal speech. Toes are down-going bilaterally. Gait is normal without ataxia. PSYCHIATRIC: Cooperative. Good eye contact. Appropriate mood and affect. ED Treatment Course - LABORATORY CBC & Chemistry Diagram: 02/26/20 12:55 02/26/20 12:55 - ADDITIONAL ORDERS Additional order review: Laboratory Results 02/26/20 02/26/20 12:55 12:55 PT with INR 12.90 INR 1.09 Urine Color Yellow Urine Appearance Clear Urine pH 7.0 Ur Specific [place] 1.024 Urine Protein Negative Urine Glucose (UA) Negative Urine Ketones Negative Urine Blood Negative Urine Nitrite Negative Urine Bilirubin Negative Urine Urobilinogen 0.2 Ur Leukocyte Esterase Negative 02/26/20 12:55 RBC 5.54 MCV 89.2 MCHC 34.2 RDW 12.9 MPV 9.4 Neutrophils % 78.3 Lymphocytes % 13.1 D Monocytes % 7.4 Eosinophils % 0.9 Basophils % 0.3 - RADIOLOGY Radiology Studies Ordered: Category Date Time Status SCROTUM AND CONTENTS US [US] Stat Ultrasound 02/26/20 13:17 Ordered Discharge - Discharge Information Problems reviewed: Yes Clinical Impression/Diagnosis: Rt groin pain Condition: Stable Disposition: HOME - Admission No - Follow up/Referral Referrals: Xavier Cramer MD [Primary Care Provider] - - Patient Discharge Instructions Patient Printed Discharge Instructions: DI for Groin Strain Additional Instructions: You were seen for your groin pain today. Your blood work, urine and ultrasound were all normal today. You were also treated empirically for STDs today. You will receive a call regarding your results. You may take Motrin 600 mg every 6 hours as needed for pain. Follow-up with your primary care doctor this week. Return to the ER for any new or worsening symptoms - Post Discharge Activity Work/Back to School Note: Back to Work
[2020-02-26] MEDS ORDERED: ACETAMINOPHEN 325 MG TABLET (FP) ONE (14:11)
[2020-02-26] MEDS ORDERED: AZITHROMYCIN 250 MG TABLET ONE (14:12)
[2020-02-26 18:51] VITALS: BP 120/78; PULSE 63; TEMP 98.3
== END 2020-02-26 18:50 | disposition home or self-care (01) ==
LOC: JER 12:22
DX: R10.31 Right lower quadrant pain (principal)
CPT/HCPCS: 36415; 76870-TC; 80053; 81003; 85025; 85610; 87086; 87491; 87591; 99284-25

== ENCOUNTER 2020-04-29 11:35 | Emergency (ER) | payer OTHER ==
[2020-04-29 11:40] VITALS: BP 123/81; PULSE 82; TEMP 98.8; BMI 28.0
== END 2020-04-29 12:40 | disposition home or self-care (01) ==
LOC: JERFT 11:35
DX: S92.424A Nondisplaced fracture of distal phalanx of right great toe, initial encounter for closed fracture (principal)
CPT/HCPCS: 73660-TC-FY; 99283-25

== ENCOUNTER 2022-05-15 11:49 | Emergency (ER) | payer OTHER ==
[2022-05-15 12:00] VITALS: BP 148/97; RESP 18; TEMP 98.9; BMI 32.5
[2022-05-15 13:42] VITALS: PULSE 70
== END 2022-05-15 13:43 | disposition home or self-care (01) ==
LOC: JER 11:49
DX: F41.0 Panic disorder [episodic paroxysmal anxiety] (principal); R00.2 Palpitations
CPT/HCPCS: 93005; 93010; 99283-25

== ENCOUNTER 2023-09-29 11:56 | Emergency (ER) | payer OTHER ==
[2023-09-29 12:27] VITALS: BP 136/84; PULSE 99; RESP 20; TEMP 99.9; BMI 32.5
== END 2023-09-29 13:56 | disposition home or self-care (01) ==
LOC: JERFT 11:56
DX: J01.40 Acute pansinusitis, unspecified (principal); R09.81 Nasal congestion; Z20.822 Contact with and (suspected) exposure to COVID-19
CPT/HCPCS: 0241U-QW; 71046-TC-FY; 99284-25